=== PATIENT | male | born 1985 | race Caucasian/White ===

== ENCOUNTER 2025-03-29 12:12 | Day surgery (SDC) | payer BC ==
[~2025-03-29] VITALS: Ht 188 cm; Wt 90.7 kg
[~2025-03-29 12:12] MED LIST: AMOX500 PO; CeFAZolin Sodium 2,000 MG VIAL ONE; HYDACE5 PO; METR500 PO; RXHYDACE PO; Rocuronium Bromide 10 MG/ML 5ML Injection IV ONE
[2025-03-29] MEDS ORDERED: Tranexamic Acid 100 ML IV ONE (12:26)
--- NOTE | 2025-03-29 13:14 | NUR ---
03/29/25 1314 Dolores Encinas 1220: CHARGE NURSE INFORMED STAFF THAT DR COLLAZO WOULD LIKE PRP COMPLETED FOR PATIENT. 1250: RNS GATHERED SUPPLIES AND MONIKA 15 ML OF BLOOD FOR PRP WHEN THE IV WAS STARTED. 1256: PRP WAS DRAWN AND LABELED BEFORE BEING PLACED IN CENTRIFUGE. MEDICAL ADMINISTRATIVE SPECIALIST JULIOG,RN NOTIFIED THAT SAMPLE WAS PLACED IN CENTRIFUGE. 1305: PATIENT'S FAMILY BROUGHT BACK TO PRE-OP TO SIT AT BEDSIDE. PT PROVIDED CALL LIGHT IN REACH. PATIENT EDUCATION COMPLETED.
[2025-03-29] MEDS ORDERED: Bupivacaine 0.5% W/EPI 1:200000 SDV 30 ML Vial ONE (13:40)
[2025-03-29] MEDS ORDERED: Glycopyrrolate 0.2 MG/ML 5ML VIAL ONE (14:08)
[2025-03-29] MEDS ORDERED: Ondansetron HCl 2 MG / ML 2ML Vial ONE (14:08)
[2025-03-29] MEDS ORDERED: Metoclopramide HCl 5MG / ML 2ML Vial ONE (14:08)
[2025-03-29] MEDS ORDERED: FentaNYL Citrate 50 MCG/ML 2 ML Injection ONE (14:12)
--- NOTE | 2025-03-29 14:31 | NUR ---
03/29/25 1431 Maria Del Carmen Robertson SINGLE DOSE OF TXA STARTED IN OR AT 1357
[2025-03-29] MEDS ORDERED: Sugammadex Sodium 200 MG/2ML SDV (100 MG/ML) ONE (15:01)
[2025-03-29 15:44] VITALS: BP 121/82
== END 2025-03-29 16:29 | disposition home or self-care (01) ==
LOC: ORSCSDS 12:12
PROVIDERS: Orthopaedic Surgery Sports Medicine
PROC: 0LQR0ZZ Repair Left Knee Tendon, Open Approach (ICD-10-PCS; principal; 2025-03-29 13:45)
DX: M67.52 Plica syndrome, left knee (principal); M67.962 Unspecified disorder of synovium and tendon, left lower leg; M17.12 Unilateral primary osteoarthritis, left knee
CPT/HCPCS: A9270; C1713; J0166; J0690; J2405; J2704; J2765; J3010; J7120